=== PATIENT | female | born 1975 | race Caucasian/White ===

== ENCOUNTER 2024-03-28 09:04 | Emergency (ER) | payer OTHER ==
[2024-03-28] MEDS ORDERED: Dexamethasone 10 MG/ML VIAL ONE (09:34)
== END 2024-03-28 09:45 | disposition home or self-care (01) ==
LOC: MADERS 09:04
DX: G56.21 Lesion of ulnar nerve, right upper limb (principal); G62.9 Polyneuropathy, unspecified; F17.210 Nicotine dependence, cigarettes, uncomplicated
CPT/HCPCS: 96372; 99283; J1100

== ENCOUNTER 2024-04-14 10:14 | Emergency (ER) | payer OTHER | END 2024-04-14 11:47 | disposition home or self-care (01) | LOC: MADERS 10:14 | DX: S63.92XA Sprain of unspecified part of left wrist and hand, initial encounter (principal); F17.210 Nicotine dependence, cigarettes, uncomplicated; W01.0XXA Fall on same level from slipping, tripping and stumbling without subsequent striking against object, initial encounter | CPT/HCPCS: 99283 ==